=== PATIENT | male | born 1965 | race Caucasian/White ===

== ENCOUNTER 2017-08-17 22:49 | Emergency (ER) | payer OTHER ==
--- NOTE | 2017-08-17 23:11 | EDM.PDOC ---
ED HPI GENERAL MEDICAL PROBLEM - General Chief Complaint: General Stated Complaint: vomiting poss rash on right leg Time Seen by Provider: 08/17/17 23:11 - History of Present Illness INITIAL COMMENTS - FREE TEXT/NARRATIVE: 51-year-old male presents emergency room with nausea vomiting and now he is developing a headache. Couple hours ago the patient developed some nausea and vomiting and then developed a headache that nausea got so bad that he had to stop and couldn't drive himself the rest of the way home his had to pick him up. He's had several loose stools. The patient's been living mostly canned food he has mandrin oranges just a couple hours before this started. Patient has a history of migraines and now he is developing on. He is not aware of any fevers chills. He's had no breathing difficulty shortness of breath. Patient denies any abdominal pain. headache Pain Score (Numeric/FACES): 9 - Related Data Allergies Allergy/AdvReac Type Severity Reaction Status Date / Time No Known Allergies Allergy Verified 08/17/17 23:05 Home Meds: Home Meds Ibuprofen 600 mg PO ASDIRECTED PRN 08/17/17 [History] Omeprazole Magnesium [Prilosec Otc] 20 mg PO DAILY PRN 08/17/17 [History] Past Medical History Musculoskeletal History: Reports: Back Pain, Chronic, Fibromyalgia Neurological History: Reports: Migraines, Other (See Below) Other Neuro History: states "neuro deficits" Psychiatric History: Reports: Anxiety, Panic Attack, PTSD - Past Surgical History Musculoskeletal Surgical History: Reports: Other (See Below) Other Musculoskeletal Surgeries/Procedures:: back surgery Social & Family History - Family History Family Medical History: Noncontributory - Tobacco Use Smoking Status *Q: Never Smoker - Caffeine Use Caffeine Use: Reports: Energy Drinks - Recreational Drug Use Recreational Drug Use: No ED ROS GENERAL - Review of Systems Review Of Systems: See Below Constitutional: Reports: No Symptoms HEENT: Reports: No Symptoms Respiratory: Reports: No Symptoms Cardiovascular: Reports: No Symptoms Endocrine: Reports: No Symptoms GI/Abdominal: Reports: Nausea, Vomiting. Denies: Abdominal Pain : Reports: No Symptoms Neurological: Reports: Headache, Other (He has history of fibromyalgia and neuropathy). Denies: Confusion, Dizziness Psychiatric: Reports: No Symptoms ED EXAM, GENERAL - Physical Exam Exam: See Below Exam Limited By: No Limitations General Appearance: Alert, Other (He is nauseated and photophobic) Eye Exam: Bilateral Eye: EOMI, Normal Inspection, PERRL Ears: Normal External Exam, Normal Canal, Hearing Grossly Normal, Normal TMs Nose: Normal Inspection, Normal Mucosa Throat/Mouth: Normal Inspection, Normal Lips, Normal Teeth, Normal Gums, Normal Oropharynx, Normal Voice, No Airway Compromise Head: Atraumatic, Normocephalic Neck: Normal Inspection, Supple, Non-Tender, Full Range of Motion. No: Lymphadenopathy (L), Lymphadenopathy (R) Respiratory/Chest: No Respiratory Distress, Lungs Clear, Normal Breath Sounds Cardiovascular: Regular Rate, Rhythm, No Edema, No Murmur GI/Abdominal: Normal Bowel Sounds, Soft, Non-Tender. No: Guarding, Rigid, Rebound Skin Exam: Other (He has a yeastlike rash in his right groin) Course - Vital Signs Last Recorded V/S: Last Vital Signs Temp 36.6 C 08/17/17 22:50 Pulse 75 08/17/17 22:50 Resp 18 08/17/17 22:50 BP 155/95 H 08/17/17 22:50 Pulse Ox 98 08/17/17 22:50 - Orders/Labs/Meds Labs: Laboratory Tests 08/17/17 08/17/17 Range/Units 23:15 23:15 WBC 8.67 (4.23-9.07) K/mm3 RBC 5.25 (4.63-6.08) M/mm3 Hgb 17.1 (13.7-17.5) gm/L Hct 46.3 (40.1-51.0) % MCV 88.2 (79.0-92.2) fl MCH 32.6 H (25.7-32.2) pg MCHC 36.9 H (32.2-35.5) g/dl RDW Std Deviation 39.8 (35.1-43.9) fL Plt Count 237 (163-337) K/mm3 MPV 9.9 (9.4-12.3) fl Neutrophils % (Manual) 86 H (40-60) % Band Neutrophils % 0 (0-10) % Lymphocytes % (Manual) 5 L (20-40) % Atypical Lymphs % 1 % Monocytes % (Manual) 8 (2-10) % Eosinophils % (Manual) 0 L (0.8-7.0) % Basophils % (Manual) 0 L (0.2-1.2) Platelet Estimate Adequate Plt Morphology Comment Normal RBC Morph Comment Normal Sodium 141 (136-145) mEq/L Potassium 3.3 L (3.5-5.1) mEq/L Chloride 105 (98-107) mEq/L Carbon Dioxide 22 (21-32) mEq/L Anion Gap 17.3 H (5-15) BUN 10 (7-18) mg/dL Creatinine 1.1 (0.7-1.3) mg/dL Est Cr Clr Drug Dosing 79.45 mL/min Estimated GFR (MDRD) > 60 (>60) mL/min BUN/Creatinine Ratio 9.1 L (14-18) Glucose 132 H (74-106) mg/dL Calcium 9.4 (8.5-10.1) mg/dL Total Bilirubin 0.7 (0.2-1.0) mg/dL AST 33 (15-37) U/L ALT 68 H (16-63) U/L Alkaline Phosphatase 78 (46-116) U/L Total Protein 7.4 (6.4-8.2) g/dl Albumin 3.8 (3.4-5.0) g/dl Globulin 3.6 gm/dL Albumin/Globulin Ratio 1.1 (1-2) Lipase 264 (73-393) U/L Meds: Medications Discontinued Medications Generic Name Dose Route Start Last Admin Trade Name Freq PRN Reason Stop Dose Admin Diphenhydramine HCl 50 mg 08/17/17 23:23 08/17/17 23:29 Benadryl IVPUSH 08/17/17 23:24 50 mg ONETIME ONE Administration Lactated Ringer's 1,000 mls @ 999 mls/hr 08/17/17 23:23 08/17/17 23:29 Ringers, Lactated IV 08/18/17 00:23 999 mls/hr .BOLUS ONE Administration Metoclopramide HCl 5 mg 08/17/17 23:23 08/17/17 23:29 Reglan IVPUSH 08/17/17 23:24 5 mg ONETIME ONE Administration Nystatin 1 gm 08/17/17 23:35 08/17/17 23:53 Nystop TOP 08/17/17 23:36 1 applic ONETIME ONE Administration - Re-Assessments/Exams Free Text/Narrative Re-Assessment/Exam: 08/18/17 01:08 Patient doing much better at this time he received some IV fluids nausea medication and Benadryl.. It is uncertain to me if is it beginning of course of gastroenteritis. I will give him some Zofran the waiting room 4 mg #10 every 4- 6 hours as needed. Departure - Departure Time of Disposition: 01:09 Disposition: Home, Self-Care 01 Clinical Impression: Nausea & vomiting, Migraine - Discharge Information Referrals: Fritz Davalos MD [Primary Care Provider] - Forms: ED Department Discharge Additional Instructions: Return to the emergency room with any questions problems worsening symptoms. Return in 12-24 hours if not improving sooner if getting worse Clear liquid diet for the next 24 hours then slowly advance as tolerated. You been given some Zofran tablets these dissolve on top or under your tongue and work fairly quickly to relieve symptoms of nausea and vomiting.
[2017-08-17] MEDS ORDERED: Metoclopramide 10 MG/2 ML SDV IVPUSH ONE (23:23)
[2017-08-17] MEDS ORDERED: Lactated Ringers 1,000 ML IV ONE (23:23)
[2017-08-17] MEDS ORDERED: diphenhydrAMINE 50 MG/ML SDV IVPUSH ONE (23:23)
[2017-08-17] MEDS ORDERED: Nystatin Topical Powder 15 GM Bottle TOP ONE (23:35)
== END 2017-08-18 01:20 | disposition home or self-care (01) ==
LOC: JD.ED 22:49
DX: G43.909 Migraine, unspecified, not intractable, without status migrainosus (principal); Z79.899 Other long term (current) drug therapy
CPT/HCPCS: 36415; 80053; 83690; 85025; 96361; 96374; 96375; 99284; A9270; J1200; J2765; J7120